=== PATIENT | male | born 1940 | race Two or more races ===

== ENCOUNTER 2022-01-08 17:55 | Emergency (ER) | payer BC, OTHER ==
[~2022-01-08] VITALS: Ht 165.1 cm; Wt 70.3 kg
[2022-01-08] MEDS ORDERED: GLYB1TAB41 PO (18:43)
[2022-01-08] MEDS ORDERED: ASPI81TA31 PO (18:43)
[2022-01-08] MEDS ORDERED: FAMO40TA7 PO (18:43)
[2022-01-08] MEDS ORDERED: IBUP-1955 PO (18:43)
[2022-01-08] MEDS ORDERED: TAMS-3 PO (18:43)
[2022-01-08 19:24] LABS: HEMATOCRIT 37.4 % (36.7-47.1); MEAN CORPUSCULAR HEMOGLOBIN 31.3 uug (23.8-33.4); MEAN CORPUSCULAR VOLUME 94.7 fL (73.0-96.2); PLATELET COUNT (AUTO) 248 K/uL (152-348)
[2022-01-08 19:32] LABS: CARBON DIOXIDE 25 mmol/L (21-32); CHLORIDE 103 mmol/L (98-107); CREATININE 0.7 mg/dL (0.6-1.3); GLUCOSE 110 mg/dL (74-106); UREA NITROGEN, BLOOD 18 mg/dL (7-18)
--- NOTE | 2022-01-08 19:58 | NUR ---
Dr. Martinez speaking with Dr. Deborah Moore for Neurosurgery consult.
[2022-01-08 20:15] LABS: MAGNESIUM 2.3 mg/dL (1.8-2.4)
--- NOTE | 2022-01-08 20:20 | NUR ---
Assumed care of pt, pt found in bed, alert and oriented with no obvious nuerological deficiets. per report pt was BIB by his son and for progressive LE weakness x 6days s/p GLF , trauma & KO denied. No deficiets immediately following fall, however in the following days pt began developing progressively worsening weaknes in his lower extremities with right being greater. 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 Weakness progessesd until today, pt cannot ambulate without assistance. No change in pts appetite, urinary and GI, pt is afebrile. Neuro intact with no change from baseline pt attached to monitoring equipment to include lunchroom monitor, pulse ox and blood, all WNL, pts mentation at baseline per family at bedside, wioth no change from time of fall until now. CT performed, pt found to have subdural hematoma. pt will be transfered to [facility] for NeuroSurgery consult, awaiting transport information. pt and family updated as to plan of care, understanding verbalised.
--- NOTE | 2022-01-08 21:34 | NUR ---
Spoke with charter coordinator as karen
--- NOTE | 2022-01-08 21:35 | NUR ---
rec'd call from intake personnel at accepting, facility, [facility]. Report given to include recent vital sign. Caller asked for updates to pts condition, of which there were none, pts updated vital signs, which remain within normal limit. Caller requested a copy of pts facesheet, disc of imaging performed, and "clinicals". Fax number of [phone] provided, Registration made aware of request for paperwork made by caller. Family was curious as to the exact name of the procedure pt is to have performed. caller was unsure. Caller unable to provide ETA for transportation sts will call back with the info. pt and family updated as to plan of care, understanding verbalised. pt resting in bed, NAD noted.
--- NOTE | 2022-01-08 21:51 | NUR ---
Note undone in EDM - 01/08/22 at 2213 by JAROD Assumed care of pt, pt found in bed, alert and oriented with no obvious nuerological deficiets. per report pt was BIB by his son and for progressive LE weakness x 6days s/p GLF , trauma & KO denied. No deficiets immediately following fall, however in the following days pt began developing progressively worseinign lower extremity weakness, worse on right. 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 Weakness progessesd until today, pt cannot ambulate without assistance. No change in pts appetite, urinary and GI, pt is afebrile. Neuro intact with no change from baseline pt attached to monitoring equipment to include manager monitoring, pulse ox and blood, all WNL, pts mentation at baseline per family at bedside, wioth no change from time of fall until now. pt to be transfered to [facility] for NeuroSurgery consult, awaiting transport information. pt and familu updated as to planof care, understanding verbalised.
--- NOTE | 2022-01-08 23:03 | NUR ---
Tello from [facility] Called back with transfer information. Patient will be going to room 4404. Call for report is . Accepting MD is Adamaris Viramontes. ETA of pick from [facility] ambulance is [phone].
--- NOTE | 2022-01-09 01:26 | NUR ---
Gave SBAR report to [id number] who will transport to [facility].
--- NOTE | 2022-01-09 01:56 | NUR ---
Gave SBAR report to Mary abdullahi from [facility] who will recieve patient.
== END 2022-01-09 01:56 | disposition short-term general hospital (02) ==
LOC: ER 17:55
DX: I62.00 Nontraumatic subdural hemorrhage, unspecified (principal); R53.1 Weakness; N40.0 Benign prostatic hyperplasia without lower urinary tract symptoms; E78.00 Pure hypercholesterolemia, unspecified; E11.9 Type 2 diabetes mellitus without complications; Z79.84 Long term (current) use of oral hypoglycemic drugs; Z79.899 Other long term (current) drug therapy; R94.31 Abnormal electrocardiogram [ECG] [EKG]; Z79.82 Long term (current) use of aspirin; D64.9 Anemia, unspecified; Z91.81 History of falling; Z20.822 Contact with and (suspected) exposure to COVID-19
CPT/HCPCS: 36415; 70450; 71045; 72131; 83735; 84484; 85025; 85730; 93005; A4663